=== PATIENT | male | born 1985 | race Caucasian/White ===

== ENCOUNTER 2021-08-02 12:47 | Inpatient (IN) | payer MEDICAID, OTHER ==
[~2021-08-02] VITALS: Ht 177.8 cm; Wt 116.0 kg
[2021-08-02] MEDS ORDERED: DEXTROSE 50%-WATER 25 GM/50 ML SYRINGE IVP PRN (13:15)
[2021-08-02] MEDS ORDERED: ALBUTEROL SULFATE HFA 90 MCG/PUFF 8 GM INHALER IH PRN (13:15)
[2021-08-02] MEDS ORDERED: REMDESIVIR 200 MG in SODIUM CHLORIDE 0.9% 250 ML IV ONE (13:15)
[2021-08-02] MEDS ORDERED: ACETAMINOPHEN 325 MG TABLET PO PRN ×2 (13:15)
[2021-08-02] MEDS ORDERED: ONDANSETRON HCL 4 MG/2 ML VIAL IVP PRN ×2 (13:15)
[2021-08-02] MEDS ORDERED: BENZONATATE 100 MG CAPSULE PO PRN (13:15)
[2021-08-02] MEDS ORDERED: INSULIN LISPRO 100 UNITS/ML SQ PRN (13:15)
[2021-08-02] MEDS: HEPARIN SODIUM,PORCINE 5,000 UNITS/ML VIAL SQ SCH (17:04)
[2021-08-02 19:50] VITALS: BP 127/92
[2021-08-02] MEDS: DOCUSATE SODIUM 100 MG CAPSULE PO SCH (20:31)
[2021-08-02] MEDS: FAMOTIDINE 20 MG TABLET PO SCH (20:31)
[2021-08-02 20:51] LABS: GLUCOMETER DEV NAME(LOC) 5N.1C; GLUCOSE,POINT OF CARE 159 MG/DL (70-110)
[2021-08-03 00:23] VITALS: BP 139/75
[2021-08-03] MEDS: HEPARIN SODIUM,PORCINE 5,000 UNITS/ML VIAL SQ SCH ×3 (00:25→16:46)
[2021-08-03 01:56] LABS: COVID AG,FIA SOURCE NASOPHARYNGEAL
[2021-08-03 05:15] VITALS: BP 124/62
[2021-08-03 05:58] LABS: BASOPHILS % (AUTO) 0.2 % (0.0-2.0); EOSINOPHILS % (AUTO) 0 % (1.0-6.0); HEMATOCRIT 45.7 % (41-53); HEMOGLOBIN 15.4 g/dL (13.5-17.5); LYMPHOCYTES # (AUTO) 1.9 K/uL (1.0-4.8); LYMPHOCYTES % (AUTO) 14.3 % (22.0-44.0); MEAN CORPUSCULAR HEMOGLOBIN 28.5 pg (26.0-34.0); MEAN CORPUSCULAR HGB CONC 33.8 G/dL (31.0-37.0); MEAN CORPUSCULAR VOLUME 84 fL (80-100); MONOCYTES # (AUTO) 0.9 K/uL (0.1-1.0); MONOCYTES % (AUTO) 7.3 % (2.0-9.0); NEUTROPHILS # (AUTO) 10.1 K/uL (1.8-7.7); NEUTROPHILS % (AUTO) 78.2 % (40.0-70.0); PLATELET COUNT (AUTO) 673 K/uL (150-450); RED BLOOD CELL COUNT(AUTO) 5.41 MIL/uL (4.50-5.90); RED CELL DISTRIBUTION WIDTH 13.3 % (11.5-14.5)
[2021-08-03 06:20] LABS: ALANINE AMINOTRANSFERASE 45 U/L (12-78); ALBUMIN 2.5 g/dL (3.4-5.0); ALKALINE PHOSPHATASE 119 U/L (46-116); ANION GAP 10 mmol/L (8-16); ASPARTATE AMINOTRANSFERASE 39 U/L (15-37); BILIRUBIN,TOTAL 0.6 mg/dL (0.1-1.0); C-REACTIVE PROTEIN QUANT 8.46 mg/dL (0.00-0.30); CALCIUM, TOTAL 9.1 mg/dL (8.8-10.5); CARBON DIOXIDE 26 mmol/L (22-29); CHLORIDE 101 mmol/L (98-107); CREATININE 0.91 mg/dL (0.60-1.30); GLOMERULAR FILTR. RATE CALC > 60 mL/min (>60); GLUCOSE,RANDOM 138 mg/dL (70-110); SODIUM SERUM 137 mmol/L (136-145); TOTAL PROTEIN, SERUM 7.6 g/dL (6.4-8.2); UREA NITROGEN, BLOOD 18 mg/dL (7-18)
[2021-08-03 07:06] LABS: GLUCOMETER DEV NAME(LOC) 5S.2B; GLUCOSE,POINT OF CARE 129 MG/DL (70-110)
[2021-08-03 08:28] VITALS: BP 138/82
[2021-08-03] MEDS: FAMOTIDINE 20 MG TABLET PO SCH (08:31)
[2021-08-03] MEDS ORDERED: DEXAMETHASONE SOD PHOS 4 MG/ML VIAL IVP SCH (09:00)
[2021-08-03] MEDS: DOCUSATE SODIUM 100 MG CAPSULE PO SCH (10:01)
[2021-08-03 11:30] VITALS: BP 130/78
[2021-08-03] MEDS ORDERED: REMDESIVIR 100 MG in SODIUM CHLORIDE 0.9% 250 ML IV SCH (13:15)
[2021-08-03 13:21] LABS: GLUCOMETER DEV NAME(LOC) 5N.1C; GLUCOSE,POINT OF CARE 172 MG/DL (70-110)
[2021-08-03 15:39] VITALS: BP 121/78
[2021-08-03 17:41] LABS: GLUCOMETER DEV NAME(LOC) 5S.1; GLUCOSE,POINT OF CARE 121 MG/DL (70-110)
== END 2021-08-04 09:10 | disposition left against medical advice (07) | DRG 137 ==
LOC: EMS 12:55 → 5N 13:08
PROVIDERS: ADMIT Internal Medicine; ATTEND Internal Medicine
PROC: XW033E5 Introduction of Remdesivir Anti-infective into Peripheral Vein, Percutaneous Approach, New Technology Group 5 (ICD-10-PCS; principal; 2021-08-02)
DX: U07.1 COVID-19 (principal); J96.91 Respiratory failure, unspecified with hypoxia; J12.82 Pneumonia due to coronavirus disease 2019; Z53.29 Procedure and treatment not carried out because of patient's decision for other reasons; E66.9 Obesity, unspecified; Z68.36 Body mass index [BMI] 36.0-36.9, adult; Z78.9 Other specified health status
CPT/HCPCS: 71045; 80053; 82962; 85025; 85379; 86140; 99291; J1100; J1644; 36415-L1; 36415-TC; U0003